=== PATIENT | male | born 1980 | race Caucasian/White ===

== ENCOUNTER 2022-10-21 03:02 | Inpatient (IN) | payer OTHER ==
[~2022-10-21] VITALS: Ht 182.9 cm; Wt 97.0 kg
[2022-10-21] MEDS ORDERED: ELIQUIS2.5 MG PO (03:43)
[2022-10-21] MEDS ORDERED: ACAMPROSATE CA333 MG PO (03:43)
[2022-10-21] MEDS ORDERED: ACET500 PO (03:43)
[2022-10-21] MEDS ORDERED: HYDMOR2 PO (03:44)
[2022-10-21] MEDS ORDERED: SENN187 PO (03:44)
[2022-10-21 04:26] LABS: BASOPHILS ABSOLUTE AUTO 0.08 K/mm3 (0.00-0.23); BASOPHILS PERCENT AUTO 0 % (0-2); EOSINOPHILS ABSOLUTE AUTO 0.04 K/mm3 (0.00-0.68); EOSINOPHILS PERCENT AUTO 0 % (0-6); Hemoglobin 13.7 g/dL (13.5-17.5); IMMATURE GRAN ABSOLUTE AUTO 0.13 K/mm3 (0.00-0.10); IMMATURE GRAN PERCENT AUTO 1 % (0-1); LYMPHOCYTES ABSOLUTE AUTO 1.27 K/mm3 (0.84-5.20); LYMPHOCYTES PERCENT AUTO 6 % (21-46); MONOCYTES PERCENT AUTO 10 % (4-13); Mean Corpuscular HGB Conc 34.3 g/dL (31.5-36.5); Mean Corpuscular Volume 94 fL (80-100); Mean Platelet Volume 8.6 fL (9.1-12.4); NEUTROPHILS ABSOLUTE AUTO 16.58 K/mm3 (1.96-9.15); NEUTROPHILS PERCENT AUTO 83 % (41-73); Platelet Count 526 K/mm3 (150-400); RDW Coefficient Variation 13.3 % (11.7-14.2); RDW Standard Deviation 45.5 fL (35.1-46.3); Red Blood Cell Count 4.28 M/mm3 (4.30-5.90)
[2022-10-21 04:44] LABS: Albumin/Globulin Ratio 0.7 (0.8-1.8); Bilirubin, Total 0.4 mg/dL (0.1-1.0); Bun/Creatinine Ratio 17.1 (12.0-20.0); Creatinine, Blood 1.05 mg/dL (0.60-1.20); Globulin, Blood 4.4 g/dL (2.2-4.0); Total Protein, Blood 7.4 g/dL (6.4-8.2)
[2022-10-21 05:39] LABS: Source, Urine Clean Catch
[2022-10-21 05:44] LABS: Bilirubin, Urine Neg (Neg); Blood, Urine 1+ (Neg); Glucose Qualitative, Urine Neg (Neg); Ketones, Urine Neg (Neg); Leukocyte Esterase, Urine 2+ (Neg); Nitrite, Urine Neg (Neg); Protein, Urine 2+ (Neg); Urobilinogen, Urine NORM (Normal)
[2022-10-21 05:54] LABS: Appearance, Urine Clear (Clear); Color, Urine Yellow (P-Yellow)
[2022-10-21 05:56] LABS: Hyaline Casts 0-2 /lpf (0-2); Mucus Light (0-Heavy)
[2022-10-21 05:57] LABS: Bacteria Rare /hpf; Squamous Epithelial Cells Few /hpf (Few)
[2022-10-21 05:58] LABS: Spermatozoa Mod /hpf
[2022-10-21 09:36] LABS: International Normalized Ratio 1.06; Prothrombin Time Results 11.1 Sec (9.7-11.5)
[2022-10-21 17:06] VITALS: BP 130/64
--- NOTE | 2022-10-21 17:42 | NUR ---
ARRIVED FROM ED VIA CHRIS, Misha&OX4, C/O PELVIC PAIN WHEN MOVING, LOWER PELVIC AREA W/ TRANSVERSE INCISION W/ SUTURES, URECIL DRAIN NOTED W/ SEROUSANG. DRAINAGE, REDNESS NOTED AROUND INCISION, IV ABX GIVEN IN ED, HEPARIN GTTS STARTED, ORIENTED TO ROOM AND CALL LIGHT USE.
[2022-10-21 19:23] VITALS: BP 118/85
[2022-10-22 03:46] VITALS: BP 116/72
[2022-10-22 06:40] LABS: BASOPHILS ABSOLUTE AUTO 0.04 K/mm3 (0.00-0.23); BASOPHILS PERCENT AUTO 0 % (0-2); EOSINOPHILS ABSOLUTE AUTO 0.05 K/mm3 (0.00-0.68); EOSINOPHILS PERCENT AUTO 0 % (0-6); Hematocrit 38.9 % (37.0-53.0); Hemoglobin 13.3 g/dL (13.5-17.5); IMMATURE GRAN ABSOLUTE AUTO 0.06 K/mm3 (0.00-0.10); IMMATURE GRAN PERCENT AUTO 1 % (0-1); LYMPHOCYTES ABSOLUTE AUTO 0.95 K/mm3 (0.84-5.20); LYMPHOCYTES PERCENT AUTO 7 % (21-46); MONOCYTES PERCENT AUTO 12 % (4-13); Mean Corpuscular HGB Conc 34.2 g/dL (31.5-36.5); Mean Corpuscular Volume 94 fL (80-100); Mean Platelet Volume 8.8 fL (9.1-12.4); NEUTROPHILS ABSOLUTE AUTO 10.62 K/mm3 (1.96-9.15); NEUTROPHILS PERCENT AUTO 80 % (41-73); Platelet Count 387 K/mm3 (150-400); RDW Coefficient Variation 13.2 % (11.7-14.2); RDW Standard Deviation 45.4 fL (35.1-46.3); Red Blood Cell Count 4.16 M/mm3 (4.30-5.90); White Blood Cell Count 13.32 K/mm3 (4.00-11.30)
[2022-10-22 06:57] LABS: Bun/Creatinine Ratio 16.3 (12.0-20.0); Creatinine, Blood 0.67 mg/dL (0.60-1.20); Potassium, Blood 3.6 mmol/L (3.5-5.5)
--- NOTE | 2022-10-22 07:17 | NUR ---
PT VSS T/O NIGHT. CIWA 8, MEDICTED W/50 MG LIBRIUM W/REP IMPROVEMENT OF SX. PT REP ABD PAIN IMPROVED SINCE URESIL DRAIN PLACED, DRAIN PUT OUT 120ML THICK SANG DRNG. DRAIN SITE WNL. SURGICAL INCISION REMAINS RED, NO DRNG NOTED, SUTURES INTACT. PT REP ONGOING MILD NUMBNESS TO EXT. HEPARIN GTT CONT PER ORDERS. IV ABX CONT PER ORDERS. PLAN TO TX TO [facility] WHEN BED AVAILABLE.
[2022-10-22 07:41] VITALS: BP 109/74
--- NOTE | 2022-10-22 12:33 | NUR ---
[facility] CALLED. ON WAIT LIST. NO BED.
[2022-10-22 15:03] VITALS: BP 111/78
--- NOTE | 2022-10-22 18:07 | NUR ---
SHIFT SUMMARY PT WAITING FOR BED @ [facility]. DRAINAGE COLOR UNCHANGED; SS/REDDISH. REPORTS PAIN IS BETTER. LAST CIWA 7.
[2022-10-22 19:37] VITALS: BP 107/64
[2022-10-23 04:29] VITALS: BP 117/75
--- NOTE | 2022-10-23 05:37 | NUR ---
SHIFT SUMMARY ADMIT FOR PELVIC ABSCESS S/P PELVIC SURG. AWAITING BED @[facility]. PIGTAIN DRAIN INTACT, 40ML OUTPUT THIS SHIFT, LIGHT RED DRAINAGE. PT MEDICATED X1 FOR 5/10 PAIN THIS SHIFT. PELVIC INCISION C/D/I W/ SUTURES. MINIMAL SWELLING NOTED. PT REPORTS SWELLING DECREASING. PT REQUESTED MEDS FOR ETOH X1 THIS SHIFT BUT WHEN REENTERING PT ROOM, HE WAS SLEEPING. PT SLEPT T/O NIGHT. CIWA'S 3-4 THIS SHIFT FOR C/O HEADACHE. NO LIBRIUM DOSED THIS SHIFT. S/O IN BED W/ PT. CALL LIGHT W/IN REACH.
[2022-10-23 07:23] VITALS: BP 114/72
[2022-10-23 14:54] VITALS: BP 96/65
--- NOTE | 2022-10-23 17:33 | NUR ---
SHIFT SUMMARY PT IND IN ROOM, AMBULATES WELL WITH FWW. PAIN CONTROLLED PER EMAR. MINIMAL DRAINAGE IN DRAIN TODAY. PT TOLERATING DIET WELL NO NAUSEA. PLAN IS TO AWAIT A BED AT [facility] AND TRANSFER FOR A FURTHER WASHOUT. PT AGREEABLE TO PLAN, DENIES FURTHER NEEDS AT THIS TIME.
[2022-10-23 19:59] VITALS: BP 128/88
--- NOTE | 2022-10-24 00:49 | NUR ---
CALL FROM JANAY HARDEN @[facility] FOR STATUS UPDATE ON PT. INFORMED NO BED AVAILABLE BUT WILL CONTINUE CALLING DAILY TO GET PT UPDATES UNTIL ABLE TO ACCEPT PT.
[2022-10-24 04:23] VITALS: BP 108/75
[2022-10-24 04:45] LABS: BASOPHILS ABSOLUTE AUTO 0.04 K/mm3 (0.00-0.23); BASOPHILS PERCENT AUTO 1 % (0-2); EOSINOPHILS ABSOLUTE AUTO 0.28 K/mm3 (0.00-0.68); EOSINOPHILS PERCENT AUTO 4 % (0-6); Hematocrit 40.7 % (37.0-53.0); Hemoglobin 13.5 g/dL (13.5-17.5); IMMATURE GRAN ABSOLUTE AUTO 0.03 K/mm3 (0.00-0.10); IMMATURE GRAN PERCENT AUTO 0 % (0-1); LYMPHOCYTES PERCENT AUTO 28 % (21-46); MONOCYTES ABSOLUTE AUTO 1.16 K/mm3 (0.16-1.47); MONOCYTES PERCENT AUTO 15 % (4-13); Mean Corpuscular HGB 31.6 pg (26.0-34.0); Mean Corpuscular HGB Conc 33.2 g/dL (31.5-36.5); Mean Corpuscular Volume 95 fL (80-100); Mean Platelet Volume 9.3 fL (9.1-12.4); NEUTROPHILS ABSOLUTE AUTO 4.29 K/mm3 (1.96-9.15); NEUTROPHILS PERCENT AUTO 54 % (41-73); Platelet Count 437 K/mm3 (150-400); RDW Coefficient Variation 13.3 % (11.7-14.2); Red Blood Cell Count 4.27 M/mm3 (4.30-5.90)
--- NOTE | 2022-10-24 05:24 | NUR ---
SHIFT SUMMARY PELVIC ABSCESS, AWAITING TRANSFER TO [facility] FOR ABSCESS WASHOUT, WHEN BED IS AVAILABLE. PIGTAIL DRAIN INTACT W/ MINIMAL OUTPUT. INCISION TO PELVIS C/D W/ SUTURES INTACT. DECREASED SWELLING AND REDNESS FROM PREVIOUS SHIFT TO INCISION SITE. POWERGLIDE TO R AC AND IV TO L HAND. PT SMOKER BUT OPTED TO USE JAY PATCH WHEN EDUCATED ON RISKS ASSOCIATED W/ TOBACCO USE AND INFECTION, PER PREVIOUS RN REPORTS. PT A&OX4, PLEASANT AND COOPERATIVE. INDEPENDANT IN ROOM. AMBULATED W/ FWW TO [employer]. S/O IN ROOM. NO ACUTE CHANGES THIS SHIFT, CALL LIGHT W/IN REACH.
[2022-10-24 07:25] VITALS: BP 116/66
--- NOTE | 2022-10-24 10:01 | NUR ---
PT SPOUSE CAME OUT OF ROOM, STATES PT IS FRUSTRATED AND WANTING TO LEAVE. THIS RN SPOKE WITH PATIENT AND HE STATED THAT HE CAN'T "JUST KEEP SITTING HER DOING NOTHING. IF NOTHING HAPPENS SOON I AM GOING TO LEAVE." ASKED PT TO LET ME SPEAK WITH THE PROVIDER, I ATTEMPTED TO EXPLAIN TO PATIENT THE SERIOUS NATURE OF AN INFECTION LIKE THIS. HE AGREED TO WAIT FOR A SMALL PERIOD OF TIME BUT THEN IMMEDIATLY LEFT. SPOUSE ASKED THIS RN TO REMOVE HIS IV'S AND POWERGLIDE. PT ALLOWED THIS RN TO REMOVE AND HE SIGNED AMA FORMS. PT STATED HE WAS TIRED OF WAITING AND WAS JUST GOING TO GO TO [facility]. DRAIN TO RLQ REMAINS IN PLACE. EDUCATED PT ON KEEPING IT CLEAN AND DRY, MONITORING FOR SIGNS OF INFECTION.
== END 2022-10-24 10:32 | disposition left against medical advice (07) | DRG 862 ==
LOC: ER 03:02 → SURS 14:52
PROVIDERS: Emergency Medicine; ADMIT Internal Medicine
PROC: HZ2ZZZZ Detoxification Services for Substance Abuse Treatment (ICD-10-PCS; principal; 2022-10-21)
PROC: 3E03329 Introduction of Other Anti-infective into Peripheral Vein, Percutaneous Approach (ICD-10-PCS; 2022-10-21)
PROC: 0W9J3ZZ Drainage of Pelvic Cavity, Percutaneous Approach (ICD-10-PCS; 2022-10-21)
DX: T81.43XA Infection following a procedure, organ and space surgical site, initial encounter (principal); A41.01 Sepsis due to Methicillin susceptible Staphylococcus aureus; K65.1 Peritoneal abscess; F10.139 Alcohol abuse with withdrawal, unspecified; E87.1 Hypo-osmolality and hyponatremia; Z79.01 Long term (current) use of anticoagulants; Z79.891 Long term (current) use of opiate analgesic; Z79.899 Other long term (current) drug therapy; Z72.0 Tobacco use; Z86.718 Personal history of other venous thrombosis and embolism; Z53.29 Procedure and treatment not carried out because of patient's decision for other reasons
CPT/HCPCS: 36415; 74177; 75989; 80048; 80053; 81001; 83605; 84145; 85025; 85520; 85610; 85730; 87040; 87070; 87075; 87077; 87086; 87147; 87186; 87205; 96365-59; 96367-59; 96375-59; 99285-25; A9270; C1751; J0690; J0696; J1170; J1644; J2405; J7030; J7050; Q9967